=== PATIENT | female | born 1990 | race Hispanic/Latino ===

== ENCOUNTER 2019-02-05 02:32 | Inpatient (IN) ==
[2019-02-05 03:17] LABS: URINE SOURCE VOIDED
[2019-02-05 03:25] LABS: BILIRUBIN URINE NEGATIVE (NEGATIVE); BLOOD URINE NEGATIVE (NEGATIVE); CLARITY CLEAR (CLEAR); COLOR YELLOW; GLUCOSE URINE NEGATIVE (NEGATIVE); KETONE URINE TRACE mg/dL (NEGATIVE); LEUKOCYTES URINE TRACE (NEGATIVE); NITRITE URINE NEGATIVE (NEGATIVE); PH URINE 6.5; PROTEIN URINE NEGATIVE (NEGATIVE); SP GRAVITY URINE 1.015; UROBILINOGEN URINE NORMAL
[2019-02-05 03:34] LABS: UR AMPHETAMINES QUAL NONE DETECTED (NONE DETECT); UR BARBITUATES QUAL NONE DETECTED (NONE DETECT); UR BENZODIAZEPIN QUAL NONE DETECTED (NONE DETECT); UR CANNABINOIDS QUAL NONE DETECTED (NONE DETECT); UR COCAINE QUAL NONE DETECTED (NONE DETECT); UR METHADONE QUAL NONE DETECTED (NONE DETECT); UR METHAMPHETAMINE QUAL NONE DETECTED (NONE DETECT); UR OPIATES QUAL NONE DETECTED (NONE DETECT); UR OXYCODONE QUAL NONE DETECTED (NONE DETECT); UR PCP QUAL NONE DETECTED (NONE DETECT); UR PROPOXYPHENE QUAL NONE DETECTED (NONE DETECT); UR TCA QUAL NONE DETECTED (NONE DETECT)
[2019-02-05] MEDS ORDERED: KEFZOL 1 GM/D5W 1 GM/50 ML IVPB IV PRN (03:46)
[2019-02-05] MEDS ORDERED: LR 500 ML IV ONE (03:46)
[2019-02-05] MEDS ORDERED: PEPCID PO ONE (03:46)
[2019-02-05] MEDS ORDERED: BICITRA PO ONE (03:49)
[2019-02-05] MEDS ORDERED: LR 1,000 ML IV SCH (04:00)
[2019-02-05 04:16] LABS: BASO# 0.01 X1000 (0.0-0.2); BASO% 0.1 % (0.0-0.8); EOS# 0.11 X1000 (0.0-0.7); EOS% 1.5 % (0.0-10.0); HEMATOCRIT 36.7 % (37.0-47.0); HEMOGLOBIN 12.4 g/dL (12.0-16.0); IMM GRAN# 0.02 X1000 (0.0-0.04); IMM GRAN% 0.3 % (0.0-0.5); LYMPH# 2.14 X1000 (1.2-3.4); LYMPH% 28.7 % (20.5-51.1); MCH 28.4 PG (27-31); MCHC 33.8 g/dL (33-37); MONO# 0.45 X1000 (0.11-0.59); MPV 11.2 FL (7.4-10.4); NEUT# 4.73 X1000 (1.4-6.5); NEUT% 63.4 % (42.2-75.2); PLT 287 X1000 (130-400); RBC 4.37 XMIL (4.2-5.4); WBC 7.46 X1000 (4.8-10.8)
[2019-02-05] MEDS ORDERED: EPHEDRINE ONE (04:45)
[2019-02-05] MEDS ORDERED: PITOCIN 20 UNITS/NS 20 UNITS/1,000 ML IV.SOLN ONE (05:09)
[2019-02-05] MEDS ORDERED: PITOCIN ONE (05:18)
[2019-02-05] MEDS ORDERED: BOOSTRIX VACCINE IM ONE (05:26)
[2019-02-05] MEDS ORDERED: PHENERGAN IM PRN (05:26)
[2019-02-05] MEDS ORDERED: DULCOLAX PR PRN (05:26)
[2019-02-05] MEDS ORDERED: MYLICON PO PRN (05:26)
[2019-02-05] MEDS ORDERED: HYDROXYZINE IM PRN (05:26)
[2019-02-05] MEDS ORDERED: AMBIEN PO PRN (05:26)
[2019-02-05] MEDS ORDERED: DEMEROL PO PRN ×2 (05:26)
[2019-02-05] MEDS ORDERED: DEMEROL IM PRN (05:26)
[2019-02-05] MEDS ORDERED: PITOCIN 20 UNITS/NS 20 UNITS/1,000 ML IV.SOLN IV ONE (05:26)
[2019-02-05] MEDS ORDERED: M-M-R II VACCINE SUBQ ONE (05:26)
[2019-02-05] MEDS ORDERED: PITOCIN IM PRN (05:26)
[2019-02-05] MEDS ORDERED: ATARAX PO PRN (05:26)
[2019-02-05] MEDS ORDERED: FENTANYL ONE (05:27)
[2019-02-05] MEDS ORDERED: MORPHINE IV PRN (05:53)
[2019-02-05] MEDS ORDERED: PHENERGAN IV PRN (06:00)
[2019-02-05] MEDS ORDERED: BENADRYL IV PRN (06:00)
[2019-02-05] MEDS ORDERED: ZOFRAN IV PRN (06:00)
[2019-02-05] MEDS ORDERED: MORPHINE PCA IV PRN (06:00)
[2019-02-05] MEDS ORDERED: NARCAN IV PRN (06:00)
[2019-02-05] MEDS ORDERED: SODIUM CHLORIDE 0.9% INJ PRN (06:00)
--- NOTE | 2019-02-05 06:34 | HISTORY AND PHYSICAL ---
HISTORY OF PRESENT ILLNESS: The patient is a 28-year-old G2, P1, 0-0-1 at 37 weeks and 6 days based off of a 36 week ultrasound who presents to Labor and Delivery with no care. Prior ultrasound completed at 36 weeks when the patient presented for labor through the triage. The patient presents today with complaint of regular contractions that started yesterday morning report contraction occurring about every 3 to 5 minutes. Reports good movements. Denies leakage of fluid or vaginal bleeding. History significant for one prior C- section completed in [facility] for failure to progress. PAST MEDICAL HISTORY: Noncontributory. MEDICATIONS: vitamins. PAST SURGICAL HISTORY: One prior delivery x1. HUMAN RESOURCE INTERNSHIP HISTORY: Denies STD exposure. OB HISTORY: G2, P1, 0-0-1 with one prior at term secondary to failure to progress. FAMILY HISTORY: Noncontributory. ALLERGIES: No known drug allergies. SOCIAL HISTORY: Denies tobacco, alcohol, or drug use. PHYSICAL EXAMINATION: VITAL SIGNS: Temperature 97.8 degrees, pulse rate 85, respirations 18, blood pressure 116/79, and O2 sats 98% on room air physical exam. GENERAL: No acute distress. Alert, awake, and oriented x3. CARDIOVASCULAR: Regular rate and rhythm. Positive S1, S2. RESPIRATORY: Clear to auscultation bilaterally. ABDOMEN: Gravid, soft. Nontender to palpation. EXTREMITIES: +1 edema. No calf tenderness. PELVIC: 3 cm dilated, 80% effaced, -3 bulging bag. Electronic monitoring category 1 tracing. Story contractions occurring every 3 to 10 minutes. ASSESSMENT: Mrs. Myers is a 28-year-old G 2, P1, 0-0-1 at 37 weeks and 6 days in early labor with a prior delivery x1. PLAN: 1. Admit to Labor and Delivery for repeat . 2. Routine labs obtained. 3. Discuss risks, alternatives, and benefits of procedure for repeat section. The patient understands risks not limited to infection, bleeding, injury to surrounding organs including the bladder, bowel, major and minor vessels. Consent signed and in chart. 4. Prophylactic antibiotics to be given prior to procedure. Pediatric Staff aware, and will be present at delivery. [facility] HOSPITALJudith
[2019-02-05] MEDS: TORADOL IV SCH ×3 (06:45→18:21)
[2019-02-05] MEDS: PRECARE PO SCH (09:27)
[2019-02-05] MEDS: MYLICON PO SCH ×4 (11:30→20:34)
--- NOTE | 2019-02-05 16:09 | OPERATIVE NOTE ---
PROCEDURE DATE: 02/05/2019 PREOPERATIVE DIAGNOSES: 1. Term at 37 weeks and 6 days. 2. Prior section x1. 3. Early labor. POSTOPERATIVE DIAGNOSES: 1. Term at 37 weeks and 6 days. 2. Prior section x1. 3. Early labor. PROCEDURE: Repeat low transverse section via Pfannenstiel incision. SURGEON: Dr. Caitlin Sanchez. COMPENSATION MANAGER: OR staff. ANESTHESIA: Spinal. EBL: 500 mL. URINE OUTPUT: 100 mL of clear urine. SPECIMEN: Placenta to Pathology. COMPLICATIONS: None. DESCRIPTION OF PROCEDURE: The patient was taken to the operating room where spinal anesthesia was found to be adequate. Two grams of Ancef were given for infectious prophylaxis. She was prepped and draped in a normal sterile fashion in dorsal supine position with a leftward tilt. A Pfannenstiel skin incision was then made with a scalpel. The incision was carried down to the fascia with the Bovie. The fascia was incised and extended laterally. The inferior aspect of the fascia was grasped with Darrian clamps. The underlying rectus muscle and pyramidalis was dissected off using Bovie electrocautery. In a similar fashion, the superior aspect of the fascia was elevated with Darrian clamps and the rectus muscle was dissected off. Hemostasis was achieved with the Bovie. The rectus muscle was in the midline down to the level of the pubic symphysis. Preperitoneal fatty tissue was bluntly dissected to expose the peritoneum. The peritoneum was found to be free of adherent bowel and entered bluntly. The peritoneal incision was extended superiorly and inferior to the bladder reflection with good visualization of the bladder. The bladder blade was inserted and the vesicouterine peritoneum identified. The vesicouterine peritoneum was opened with Metzenbaum scissors and a bladder flap was developed. The bladder blade was repositioned to keep the bladder out of the operative field. The lower uterine segment was incised with a scalpel. The amniotic sac was ruptured and clear fluid was noted. The uterine incision was extended bluntly with upward and downward traction. The fetus was in cephalic presentation. The head was elevated out of the pelvis with special attention paid to avoid using the uterine incision as a fulcrum. Gentle fundal pressure was applied. Once the head was brought into the incision, the infant was delivered with no difficulty. The mouth and nose were suctioned with a bulb. The cord was clamped and cut. The was handed off to the documentation lead staff. IV oxytocin was initiated to facilitate uterine contractions. The placenta was delivered intact with manual massage of the uterine fundus. The uterus was then exteriorized. The inside of the uterus was gently wiped with a lap sponge to assure complete removal of placental membranes. The incision was closed with a 1-0 Monocryl suture in a running locked fashion. A 2nd Monocryl suture was used to reinforce hemostasis. Ovaries and tubes were found to be normal. The uterus, tubes and ovaries were then returned to the abdominal cavity. The blood clots and fluids were wiped out of the abdomen and pelvis with moist laparotomy sponges. The uterine incision was reinspected and good hemostasis was note. To the fascial layer was then closed with 0 Vicryl in a running nonlocking fashion. The subcutaneous tissue was closed and reapproximated using 2-0 plain gut in a running nonlocking fashion. The skin was reapproximated using deepika. The patient tolerated the procedure well. All counts were correct x2. The patient was taken to recovery room in stable condition.
[2019-02-05] MEDS: PITOCIN 10 UNITS/NS 1,000 ML IV SCH (18:05)
[2019-02-05] MEDS: PERICOLACE PO SCH (20:34)
[2019-02-06] MEDS: TORADOL IV SCH (00:13)
[2019-02-06] MEDS: PITOCIN 10 UNITS/NS 1,000 ML IV SCH (02:36)
[2019-02-06] MEDS ORDERED: LR 1,000 ML IV SCH (05:26)
[2019-02-06 06:28] LABS: BASO# 0.01 X1000 (0.0-0.2); BASO% 0.2 % (0.0-0.8); EOS# 0.17 X1000 (0.0-0.7); EOS% 2.7 % (0.0-10.0); HEMATOCRIT 31.1 % (37.0-47.0); IMM GRAN# 0.01 X1000 (0.0-0.04); IMM GRAN% 0.2 % (0.0-0.5); LYMPH# 1.84 X1000 (1.2-3.4); LYMPH% 29.1 % (20.5-51.1); MCH 27.8 PG (27-31); MCHC 32.2 g/dL (33-37); MCV 86.4 FL (81-99); MONO# 0.34 X1000 (0.11-0.59); MONO% 5.4 % (1.7-9.3); MPV 10.5 FL (7.4-10.4); NEUT# 3.96 X1000 (1.4-6.5); NEUT% 62.4 % (42.2-75.2); PLT 224 X1000 (130-400); RDW 15.3 % (11.5-14.5); WBC 6.33 X1000 (4.8-10.8)
--- NOTE | 2019-02-06 07:44 | OB/GYN PROGRESS NOTE ---
Progress Note OB - . Patient Problems: Current Active Problems Problem Status Onset S/P repeat low transverse Acute OB Progress Note: Vital Signs - 24 hr 02/05/19 08:00 02/05/19 11:28 02/05/19 16:00 Temperature 97.1 F L 97.5 F L 96.8 F L Pulse Rate 78 66 58 L Respiratory Rate 16 16 96 H Blood Pressure 111/71 100/59 88/54 Blood Pressure [Left Arm] 111/71 O2 Sat by Pulse Oximetry 98 96 96 02/05/19 20:07 02/06/19 00:14 02/06/19 03:51 Temperature 96.8 F L 97.6 F 97.3 F L Pulse Rate 67 65 69 Respiratory Rate 18 18 18 Blood Pressure 98/54 81/52 82/49 Blood Pressure [Left Arm] O2 Sat by Pulse Oximetry 95 97 97 Laboratory Results - last 24 hr 02/06/19 06:11 WBC 6.33 RBC 3.60 L Hgb 10.0 L D Hct 31.1 L MCV 86.4 MCH 27.8 MCHC 32.2 L RDW Std Deviation 15.3 H Plt Count 224 MPV 10.5 H Immature Gran % (Auto) 0.2 Neut % (Auto) 62.4 Lymph % (Auto) 29.1 [place] % (Auto) 5.4 Eos % (Auto) 2.7 Baso % (Auto) 0.2 Immature Gran # (Auto) 0.01 Neut # (Auto) 3.96 Lymph # (Auto) 1.84 [place] # (Auto) 0.34 Eos # (Auto) 0.17 Baso # (Auto) 0.01 Pain controlled with meds. She is tolerating liquids and desires breakfast minimal lochia fontanez in place approximately 300cc in the bag. O: VSSAF Gen: AAOx3 NAD CV: RRR no g/m/r Lungs: CTAB no w/r/r Abd: +BS soft NT/ND incision with bandage over it Ext: no c/c/e Labs as above A: POD#1 s/p RLTCS anemia NPC P: Cont post-op mgmt D/C fontanez Ambulate TID Pt may shower
[2019-02-06] MEDS: MOTRIN PO PRN ×2 (08:40→21:20)
[2019-02-06] MEDS: MYLICON PO SCH ×4 (08:40→21:21)
[2019-02-06] MEDS: PERCOCET-5 PO PRN (08:41)
[2019-02-06] MEDS: PRECARE PO SCH (08:41)
[2019-02-06] MEDS: PERCOCET-10 PO PRN ×2 (12:37→21:21)
[2019-02-06] MEDS: PERICOLACE PO SCH (21:20)
--- NOTE | 2019-02-07 07:48 | OB/GYN PROGRESS NOTE ---
Progress Note OB - . Patient Problems: Current Active Problems Problem Status Onset S/P repeat low transverse Acute OB Progress Note: Vital Signs - 24 hr 02/06/19 08:18 02/06/19 12:31 02/06/19 15:45 Temperature 97.3 F L 97.1 F L Pulse Rate 83 70 80 Respiratory Rate 16 16 18 Blood Pressure 98/56 87/51 O2 Sat by Pulse Oximetry 96 96 02/06/19 16:25 02/06/19 21:14 02/07/19 00:50 Temperature 96.3 F L 97.2 F L 97.0 F L Pulse Rate 72 82 71 Respiratory Rate 14 18 18 Blood Pressure 97/58 111/59 101/55 O2 Sat by Pulse Oximetry 95 96 95 02/07/19 04:47 Temperature 96.1 F L Pulse Rate 62 Respiratory Rate 16 Blood Pressure 94/50 O2 Sat by Pulse Oximetry 96 Pt doing well pain well controlled no N/V tolerating po well O: VSSAF GEN: AAOx3 NAD CV: RRR no g/m/r Lungs: CTAB no w/r/r Abd: +BS soft NT/ND Ext: no c/c/e A: POD#2 s/p RLTCS anemia P Cont current mgmt D/C home tomorrow
[2019-02-07] MEDS: PRECARE PO SCH (09:38)
[2019-02-07] MEDS: MOTRIN PO PRN (09:38)
[2019-02-07] MEDS: MYLICON PO SCH ×4 (09:39→20:54)
[2019-02-07] MEDS: PERCOCET-10 PO PRN (16:06)
[2019-02-07] MEDS: PERICOLACE PO SCH (20:53)
--- NOTE | 2019-02-08 07:11 | OB/GYN PROGRESS NOTE ---
Progress Note OB - . Patient Problems: Current Active Problems Problem Status Onset S/P repeat low transverse Acute OB Progress Note: Vital Signs - 24 hr 02/07/19 08:30 02/07/19 09:30 02/07/19 11:55 Temperature 97.1 F L 97.0 F L Pulse Rate 78 70 65 Respiratory Rate 14 16 14 Blood Pressure 101/58 120/78 O2 Sat by Pulse Oximetry 97 100 02/07/19 16:05 02/07/19 19:54 02/07/19 23:57 Temperature 97.5 F L 97.2 F L 97.6 F Pulse Rate 68 77 82 Respiratory Rate 14 18 18 Blood Pressure 100/55 115/66 103/58 O2 Sat by Pulse Oximetry 98 97 95 02/08/19 04:09 Temperature 97.0 F L Pulse Rate 68 Respiratory Rate 18 Blood Pressure 110/61 O2 Sat by Pulse Oximetry 98 No complaints, ambulating without difficulty, pain well controlled, denies PIH/Orthostatic symptoms. A&O NAD CTAB RRR S/ND/appropriate post op discomfort Incision C/D/I without E/E/I No C/C/E POD 3 s/p Repeat LTCS doing well - D/C home - follow up Dr. Jerry Tuesday for staple removal.
[2019-02-08 09:13] VITALS: BP 98/58
[2019-02-08] MEDS: PERCOCET-5 PO PRN (09:20)
[2019-02-08] MEDS: MYLICON PO SCH (09:20)
[2019-02-08] MEDS: MOTRIN PO PRN (09:20)
[2019-02-08] MEDS: PRECARE PO SCH (09:20)
== END 2019-02-08 10:35 | disposition home or self-care (01) | DRG 788 ==
LOC: P.OPLD 02:32 → P.LD 02:34
PROVIDERS: ADMIT Obstetrics & Gynecology; ATTEND Obstetrics & Gynecology